=== PATIENT | female | born 1980 | race Caucasian/White ===

== ENCOUNTER 2017-02-24 13:22 | Emergency (ER) | payer SELFPAY ==
[~2017-02-24] VITALS: Ht 162.6 cm; Wt 79.5 kg
[2017-02-24 13:29] VITALS: BP 139/91; PULSE 96; RESP 18; O2SAT 98
[2017-02-24 14:00] LABS: APPEARANCE,URINE HAZY (CLEAR,HAZY); COLOR,URINE STRAW (YELLOW); OCCULT BLOOD,URINE NEGATIVE (NEGATIVE); UROBILINOGEN,URINE NORMAL (NORMAL)
[2017-02-24 14:03] LABS: BASOPHILS % (AUTO) 0.4 % (0-3); EOSINOPHILS % (AUTO) 1.6 % (0-5); MONOCYTES % (AUTO) 8.9 % (4-12); Mean Corpuscular Hemoglobin 29.3 pg (27.0-35.0); Mean Corpuscular Volume 91.3 fL (81-100); NEUTROPHILS % (AUTO) 62.2 % (40-74); Platelet Count 325 bil/L (150-400)
--- NOTE | 2017-02-24 15:17 | ED.REPORT ---
HPI-Abd Pain F Under 40 Date of Service Feb 24, 2017 ED Provider: Richie John MD Pt is a healthy 36 y/o female presenting to the ED c/o rectal pain with radiation to the lower abdomen onset 6 days ago. She has been experiencing rectal pain which she describes as not being located at the anus but much deeper. Her rectal pain seems to radiate in a sharp fashion to her lower abdomen. She describes the pain as a stick being shoved up her rectum. Pain is exacerbated by pressure to the buttocks such as sitting or laying.There is no history of any similar symptoms. She denies fever, chills, diarrhea, constipation, dysuria, bloody stool, nausea, vomiting, vaginal pain. The patient had a hysterectomy 10 years ago due to continuous vaginal bleeding after an IUD. There is no family history of colon cancer, IBS, or Crohn's disease. Nursing Notes Stated Complaint: ABDOMINAL PAIN SENT FROM URGENT CARE Chief Complaint: Female Abdominal Pain Nursing Notes Reviewed: Yes Allergies: Coded Allergies: No Known Allergies (Unverified Allergy, Unknown, 02/24/17) General Time Seen by MD: 15:15 Chief Complaint Other (rectal pain) Hx Obtained From: Patient Arrived By: Walk-in Sudden in Onset?: No Onset Occurred: 6 days ago Symptom Duration: Since onset Progression since Onset: Constant Quality: Painful Radiation: : Abdomen lower Severity: Current: Moderate Severity: Maximum: Moderate Recent Healthcare: No recent doctor visit, No recent hospitalization Similar Sx Previous: No Past Medical History Past Medical History Denies Past Surgical History Hysterectomy - 2006 at [facility] in [place] Smoking History Never Smoker Social History Alcohol Use: Denies alcohol use Drug Use: Denies drug use Ambulatory Status Independent Review of Systems Constitutional: Denies: Chills, Fever Respiratory: Denies: Non-productive cough, Shortness of breath Cardiovascular: Denies: Chest pain, Dyspnea on exertion, Edema GI: Reports: Abdominal pain, Rectal pain, Denies: Anorexia, Bloody/tarry stool, Constipation, Diarrhea, Hematochezia, Melena, Mucousy stool, Nausea, Vomiting Complete sys rev & neg: except as marked. Physical Exam Initial Vital Signs Vital Signs (First) Date Time Temp Pulse Resp B/P Pulse Ox O2 Delivery O2 Flow Rate FiO2 02/24/17 13:29 37 96 18 139/91 98 Room Air Initial VS: Reviewed, Vital signs normal Head / Eyes: Atraumatic, Normocephalic, PERRL ENT: Mucous membranes moist, Conjunctiva normal, No scleral icterus Neck: Supple, Full range of motion Extremities: Vascular intact, Neuro intact, No swelling, No tenderness Skin: Warm, Dry, No cyanosis Neurologic: Alert, Oriented, Nonfocal Psychiatric: Mood/affect normal, Behavior normal, Normal thought content General/Constitutional: Awake, Alert, No acute distress, Cooperative, Not toxic appearing Appearance / Presentation: Positive: Uncomfortable Respiratory / Chest: Atraumatic, Breath sounds NL, Breath sounds = bilat, No respiratory distress, No rales, No rhonchi, No wheezing, No retractions, No stridor, No chest tenderness, No chest wall deformity, No crepitus Cardiovascular: Heart rate NL, Regular rhythm, Heart sounds NL, No gallop, No murmurs, No rubs, Cap refill not delayed, Peripheral circulation NL Abdomen: Atraumatic, Soft, Non-tender, No guarding, No rebound, No distention, No palpable mass Back: Full range of motion, Painless range of motion, No CVA tenderness Female Genitourinary: Extension Work Instructor present (RN Peg), Atraumatic, External genitalia NL, No bleeding, No discharge, No adnexal mass Vaginal tenderness anteriorly Unable to palpate adnexa Rectum / Perineum: Atraumatic, Blood - occult heme -, No gross blood, No discharge, No fecal impaction, No fissures, No hemorrhoids, No mass Formed brown stool Rectovaginal exam normal with no palpable mass Interpretation & Diagnostics Lab Results Interpretation Result Diagram: 02/24/17 1350 02/24/17 1350 Test 02/24/17 13:36 02/24/17 13:50 Urine Color Straw (YELLOW) Urine Appearance Hazy (CLEAR,HAZY) Urine pH 7.0 (5.0-8.0) Urine Specific [place] 1.010 (1.003-1.035) Urine Protein Negativemg/dL (NEG,TRACE) Urine Glucose (UA) Negativemg/dL (NEGATIVE) Urine Ketones Negativemg/dL (NEGATIVE) Urine Occult Blood Negative (NEGATIVE) Urine Nitrite Negative (NEGATIVE) Urine Bilirubin Negative (NEGATIVE) Urine Urobilinogen Normalmg/dL (NORMAL) Urine Leukocyte Esterase Negative (NEGATIVE) Urine RBC 0-2/hpf (0-2) Urine WBC 0-5/hpf (0-5) Urine Epithelial Cells Occasional/hpf (NONE-MOD) Urine Crystals None seen (NONE SEEN) Urine Bacteria Moderate/hpf (NONE-FEW) Urine Hyaline Casts None/lpf (NONE) Urine Granular Casts None seen (NONE SEEN) Urine Waxy Casts None seen (NONE SEEN) Urine Red Blood Cell Casts None seen (NONE SEEN) Urine White Blood Cell Casts None seen (NONE SEEN) Urine Mucus None seen (None Seen) Urine Trichomonas None seen (NONE SEEN) Urine Yeast None (NONE SEEN) Urinalysis Comment None Urine Culture Reflexed Indicated White Blood Count 8.0th/mm3 (3.8-10.1) Red Blood Count 4.61mil/mm3 (3.90-5.20) Hemoglobin 13.5g/dL (12.0-15.6) Hematocrit 42.1% (35.0-46.0) Mean Corpuscular Volume 91.3fL (81-100) Mean Corpuscular Hemoglobin 29.3pg (27.0-35.0) Mean Corpuscular Hemoglobin Concent 32.1% (32.0-37.0) Red Cell Distribution Width 13.4% (12.3-15.4) Platelet Count 325bil/L (150-400) Neutrophils (%) (Auto) 62.2% (40-74) Lymphocytes (%) (Auto) 26.7% (14-46) Monocytes (%) (Auto) 8.9% (4-12) Eosinophils (%) (Auto) 1.6% (0-5) Basophils (%) (Auto) 0.4% (0-3) Sodium Level 138mEq/L (134-144) Potassium Level 3.8mEq/L (3.5-5.2) Chloride Level 102mEq/L (97-108) Carbon Dioxide Level 20mmol/L (18-29) Blood Urea Nitrogen 6mg/dL (6-20) Creatinine 0.63mg/dL (0.57-1.00) Estimat Glomerular Filtration Rate 155mL/min (>59) Glucose Level 102mg/dL (60-99) Lactic Acid Level 1.2mmol/L (0.4-2.0) Calcium Level 10.0mg/dL (8.5-10.1) Magnesium Level 2.0mg/dL (1.6-2.6) Total Bilirubin 0.3mg/dL (0.0-1.2) Aspartate Amino Transf (AST/SGOT) 19U/L (0-50) Alanine Aminotransferase (ALT/SGPT) 16U/L (0-32) Alkaline Phosphatase 57U/L (25-150) Total Protein 7.7g/dL (6.4-8.4) Albumin 4.5g/dL (3.4-5.0) Lipase 41U/L (13-60) CT Abd / Pelvis Interpretation IMPRESSION: 1. 18 mm follicle/small cyst in the left ovary. 2. 29 mm AP by 20 mm transverse focus of fluid within the inferior pelvis in direct approximation to the rectum and adjacent sigmoid colon. There is a very minimal appearance of stranding within the adjacent perirectal fat. This could represent a small amount of inflammatory fluid such as developing abscess or phlegmon of uncertain etiology. In addition, potentially developing colitis/proctitis cannot be definitively excluded. While there is an appearance of mild thickening within the sigmoid colon extending to the rectum, it is also incompletely distended. Clinical correlation and interval followup is recommended. Dictated by: Nishi Granados M.D. on 02/24/2017 at 17:14 Approved by: Nishi Granados M.D. on 02/24/2017 at 17:22 Study type: Abdominal CT IV contrast, Abdom CT oral contrast Interpretation / Wet Read by: Interpret - Radiologist, Discussed w radiologist US Focused non-OB Pelvis IMPRESSION: Bilateral ovarian cysts. Otherwise, unremarkable exam. Dictated by: Nishi Granados M.D. on 02/24/2017 at 17:50 Approved by: Nishi rGanados M.D. on 02/24/2017 at 17:51 Exam Performed by: Allied health pract Exam Interpreted by: Radiologist Re-Eval/Medical Decision Re-Evaluation/Progress #1: Time of Eval: 17:49 Re-Evaluation/Progress Note: Pt rechecked. Discussed imaging findings. Re-Evaluation/Progress #2: Time of Eval: 18:25 Re-Evaluation/Progress Note: Pt rechecked. Informed pt of plan for treatment. Pt understands and agrees with plan for treatment. F/U instructions and RTER warnings given. All questions addressed. Consultation #1: Referral / Consult Name: Hoang Pulido MD Consulted With: Surgeon Call Returned at: 17:32 Therapeutic Massage Technician: Agrees with eval, Agrees with plan Note: Reviewed CT scan. Believes this fluid is likely colorectal in nature rather than recruit instructor. Will call GI physician and call back. Recommends outpatient GI follow-up. Consultation #2: Referral / Consult Name: Nishi Granados MD Call Returned at: 17:47 Therapeutic Massage Technician: Agrees with eval, Agrees with plan Note: Discussed imaging with radiologist in depth. Counseled Regarding: Diagnosis, Lab results, Need for follow-up, When/why to return to ED Discharge & Departure Primary Impression: Pelvic fluid collection Additional Impression: Rectal pain Disposition: Home Discharge Condition All VS Reviewed: Yes Condition: Stable Patient Instructions: Acute Abdominal Pain (ED) Additional Instructions: The CT scan today showed a pocket of fluid just next to the rectum. It is unclear why the fluid is there or what it represents but it does not seem to be emergent at the moment. I consulted with our surgeon, radiologist, and dynamo repairer. They believe the source of fluid is colorectal rather than gynecological. Outpatient follow-up is the best option at this time. Take 800 mg Ibuprofen every 8 hours for aching pain. Take the prescription pain medication as needed for severe pain. This causes sedation and constipation. Each strong pain pill contains 325 mg of Tylenol so include this in your daily total of 4000 mg. Return to the emergency department if you experience vomiting, high fever, increasing pain, shaking chills, diarrhea, or for other concerning symptoms. Follow-up with gastrointestinal physician Dr. Garcia early next week. Call tomorrow morning to set up an appointment. Referrals: Miguel Garcia MD Attestation Portions of this note were transcribed by Pedro Keane. I, Dr. John, personally performed the history, physical exam and medical decision-making; I reviewed and confirmed the accuracy of the information in the transcribed note. Signed by Adalberto Watson, 02/24/17 - 1600 copies to: Miguel Garcia MD, Kirk H MD Feb 24, 2017 15:17 PEDRO KEANE Feb 24, 2017 15:24
[2017-02-24] MEDS ORDERED: Iohexol 300 mg/mL 30 mL Inj PO ONE (15:35)
--- NOTE | 2017-02-24 17:23 | DRSVH ---
PROCEDURE: CT ABDOMEN AND PELVIS WITH CONTRAST ([id number]) INDICATIONS: recto-vaginal pain TECHNIQUE: After the administration of oral and intravenous contrast, 5 mm thick sections acquired from the diap hragms to the symphysis. 5 mm thick coronal and sagittal reformats were performed. For radiation do se reduction, the following was used: automated exposure control, adjustment of mA and/or kV accordi ng to patient size. COMPARISON: [facility] [place] , CT, ABD/PELVIS W/CON ([facility] 12/18/2009, 13:52. FINDINGS: Image quality: Excellent. ABDOMEN: Lung bases: Lung bases are clear. Heart size is normal. Solid organs: Liver and spleen are normal in size and enhancement. Gallbladder is unremarkable . B iliary system is non-dilated. Pancreas enhances normally. No adrenal nodules. Kidneys are normal i n size and enhancement, without hydronephrosis. Peritoneum and bowel: Stomach, small bowel, and colon loops are normal in caliber and wall thickness . No free air. There is a 29 mm AP by 20 mm transverse focus of fluid within the lower pelvis at th e anterior margin of the rectum and adjacent sigmoid colon. There is a minimal appearance of strandin g within the adjacent perirectal fat. Adjacent sigmoid colon demonstrates a questionable appearance o f minimal thickening. However, it is incompletely distended. Nodes and vessels: No retroperitoneal or mesenteric adenopathy. Aorta and inferior vena cava are no rmal in caliber. Miscellaneous: No ventral hernias. PELVIS: Genitourinary: Bladder wall thickness is normal. There is an 18 mm follicle/small cyst in the left ovary. Miscellaneous: No inguinal hernias or adenopathy. Bones: No suspicious bony lesions. No vertebral body compression fractures. IMPRESSION: 1. 18 mm follicle/small cyst in the left ovary. 2. 29 mm AP by 20 mm transverse focus of fluid within the inferior pelvis in direct approximation to the rectum and adjacent sigmoid colon. There is a very minimal appearance of stranding within the adj acent perirectal fat. This could represent a small amount of inflammatory fluid such as developing ab scess or phlegmon of uncertain etiology. In addition, potentially developing colitis/proctitis cannot be definitively excluded. While there is an appearance of mild thickening within the sigmoid colon e xtending to the rectum, it is also incompletely distended. Clinical correlation and interval followup is recommended. Dictated by: Nishi Granados M.D. on 02/24/2017 at 17:14 Approved by: Nishi Granados M.D. on 02/24/2017 at 17:22
--- NOTE | 2017-02-24 17:53 | DRSVH ---
PROCEDURE: US PELVIC SONOGRAM + TRANSVAGINAL SONOGRAM INDICATIONS: recto-pelvic pain TECHNIQUE: Real-time scanning was performed of the pelvic organs, with image documentation. Additional endovagi nal scanning was necessary due to incomplete visualization of the adnexal and endometrial structures by transabdominal scanning. COMPARISON: None. FINDINGS: (orthogonal measurements) Uterus size: Absent Right ovary size: 2.36 cm, 2.08 cm, 2.87 cm Left ovary size: 2.44 cm, 2.21 cm, 3.90 cm Transabdominal scanning: Limited scanning through the kidneys shows no hydronephrosis. No pathologi c free abdominal or pelvic fluid. Endovaginal scanning: Uterus: Uterus is normal in size and appearance. Endometrium is within normal physiologic limits. Ovaries: There is a complex heteroechogenicity within the right ovary measuring 13 x 15 x 14 mm. Foca l area of hypoechogenicity is present within the left ovary measured 21 x 21 x 16 mm. IMPRESSION: Bilateral ovarian cysts. Otherwise, unremarkable exam. Dictated by: Nishi Granados M.D. on 02/24/2017 at 17:50 Approved by: Nishi Grnaados M.D. on 02/24/2017 at 17:51
[2017-02-24] MEDS ORDERED: ONDA4TAB9 PO (18:30)
[2017-02-24] MEDS ORDERED: HYDR-4003 PO (18:30)
[2017-02-24 18:43] VITALS: BP 132/93; PULSE 94; RESP 16; O2SAT 99
== END 2017-02-24 18:44 | disposition home or self-care (01) ==
LOC: SED 13:22
DX: R19.09 Other intra-abdominal and pelvic swelling, mass and lump (principal); K62.89 Other specified diseases of anus and rectum; Z90.710 Acquired absence of both cervix and uterus
CPT/HCPCS: 36415; 74177; 76830; 76856; 80053; 81000; 83605; 83690; 83735; 85025; 87040; 87086; 87088; 99285; J1885; Q9967

== ENCOUNTER 2017-02-26 21:01 | Observation (INO) | payer SELFPAY ==
[~2017-02-26] VITALS: Ht 162.6 cm; Wt 84.8 kg
[~2017-02-26 21:01] MED LIST: HYDR-4003 PO; ONDA4TAB9 PO
[2017-02-26 21:05] VITALS: BP 133/84; PULSE 105; RESP 18; O2SAT 99
--- NOTE | 2017-02-26 21:18 | ED.REPORT ---
HPI-Abd Pain F Under 40 Date of Service Feb 26, 2017 ED Provider: Cesar Mcrae MD The pt is a healthy 36 y/o female presenting to the ED c/o LLQ abdominal pain onset 1900 today. She reports the pain initially was localized to her right flank but now is experiencing a very sharp pain in her LLQ. The pain began very abruptly and was constant but now she reports the pain waxing and waning. She bought stool softener yesterday and experienced diarrhea. She is experiencing nausea but denies pain with bowel movements, fever, dysuria, or vomiting. She was recently in the ED two days ago c/o rectal pain which had been ongoing for 6 days. The patient had a hysterectomy 10 years ago due to continuous vaginal bleeding after an IUD. She had a small sip of water very recently and took pain medication with food at 1200. CT and ultrasound were performed during that visit and were interpreted as below. CT Abd / Pelvis Interpretation IMPRESSION: 1. 18 mm follicle/small cyst in the left ovary. 2. 29 mm AP by 20 mm transverse focus of fluid within the inferior pelvis in direct approximation to the rectum and adjacent sigmoid colon. There is a very minimal appearance of stranding within the adjacent perirectal fat. This could represent a small amount of inflammatory fluid such as developing abscess or phlegmon of uncertain etiology. In addition, potentially developing colitis/proctitis cannot be definitively excluded. While there is an appearance of mild thickening within the sigmoid colon extending to the rectum, it is also incompletely distended. Clinical correlation and interval followup is recommended. Dictated by: Nishi Granados M.D. on 02/24/2017 at 17:14 Approved by: Nishi Granados M.D. on 02/24/2017 at 17:22 Study type: Abdominal CT IV contrast, Abdom CT oral contrast Interpretation / Wet Read by: Interpret - Radiologist, Discussed w radiologist US Focused non-OB Pelvis IMPRESSION: Bilateral ovarian cysts. Otherwise, unremarkable exam. Dictated by: Nishi Granados M.D. on 02/24/2017 at 17:50 Approved by: Nishi Granados M.D. on 02/24/2017 at 17:51 Exam Performed by: Allied health pract Exam Interpreted by: Radiologist Nursing Notes Stated Complaint: ABDOMINAL PAIN Chief Complaint: Female Abdominal Pain Nursing Notes Reviewed: Yes Allergies: Coded Allergies: No Known Allergies (Verified Allergy, Unknown, 02/26/17) Scheduled PRN Hydrocodone-Acetaminophen 5-325 mg (Hydrocodone-Acetaminophen 5-325 mg) 1 Each Tablet 1-2 TABLET PO Q4H PRN PRN For Pain Ondansetron ODT (Zofran ODT) 4 Mg Tablet 4 MG PO Q4H PRN PRN For Nausea General Time Seen by MD: 21:15 Chief Complaint Abdominal pain Hx Obtained From: Patient Arrived By: Walk-in Sudden in Onset?: Yes Onset Occurred: 1 - 4 hours ago Symptom Duration: Waxes and wanes Progression since Onset: Waxes and wanes Location: : LLQ Quality: Stabbing Severity: Current: Severe Severity: Maximum: Severe Recent Healthcare: Recent doctor visit, Recent testing Similar Sx Previous: No Past Medical History Past Medical History Denies Past Surgical History Hysterectomy - 2007 at [facility] in [place] Smoking History Never Smoker Social History Alcohol Use: Denies alcohol use Drug Use: Denies drug use Ambulatory Status Independent Review of Systems Review of Systems Note: Denies pain w/ bm Constitutional: Denies: Fever GI: Reports: Abdominal pain (LLQ), Diarrhea, Nausea, Denies: Vomiting Complete sys rev & neg: except as marked. Physical Exam Initial Vital Signs Vital Signs (First) Date Time Temp Pulse Resp B/P Pulse Ox O2 Delivery O2 Flow Rate FiO2 02/26/17 21:05 36.7 105 18 133/84 99 Room Air Initial VS: Reviewed, Vital signs abnormal Head / Eyes: Atraumatic, Normocephalic, PERRL ENT: Mucous membranes moist, Conjunctiva normal, No scleral icterus Neck: Supple, Full range of motion Extremities: Vascular intact, Neuro intact, No swelling, No tenderness Skin: Warm, Dry, No cyanosis Neurologic: Alert, Oriented, Nonfocal Psychiatric: Mood/affect normal, Behavior normal, Normal thought content General/Constitutional: Awake, Alert, Well developed, Well nourished, Cooperative, Not toxic appearing Appearance / Presentation: Positive: Uncomfortable Respiratory / Chest: Atraumatic, Breath sounds NL, Breath sounds = bilat, No respiratory distress, No rales, No rhonchi, No wheezing Cardiovascular: Heart rate NL, Regular rhythm, Heart sounds NL, No gallop, No murmurs, No rubs, Peripheral circulation NL Abdomen: Atraumatic, Soft, No distention Tenderness/Guarding/Rebound: Positive: Guarding involuntary, Tender LLQ... (w/ guarding ), Tender suprapubic (w/ guarding ) Back: Full range of motion, Painless range of motion Interpretation & Diagnostics Lab Results Interpretation Result Diagram: 02/26/17214902/26/172149 Test 02/26/17 21:50 White Blood Count 8.6th/mm3 (3.8-10.1) Red Blood Count 4.35mil/mm3 (3.90-5.20) Hemoglobin 12.8g/dL (12.0-15.6) Hematocrit 40.1% (35.0-46.0) Mean Corpuscular Volume 92.2fL (81-100) Mean Corpuscular Hemoglobin 29.4pg (27.0-35.0) Mean Corpuscular Hemoglobin Concent 31.9% (32.0-37.0) Red Cell Distribution Width 13.4% (12.3-15.4) Platelet Count 332bil/L (150-400) Neutrophils (%) (Auto) 57.2% (40-74) Lymphocytes (%) (Auto) 30.7% (14-46) Monocytes (%) (Auto) 8.8% (4-12) Eosinophils (%) (Auto) 2.7% (0-5) Basophils (%) (Auto) 0.5% (0-3) Sodium Level 138mEq/L (134-144) Potassium Level 4.2mEq/L (3.5-5.2) Chloride Level 103mEq/L (97-108) Carbon Dioxide Level 22mmol/L (18-29) Blood Urea Nitrogen 8mg/dL (6-20) Creatinine 0.62mg/dL (0.57-1.00) Estimat Glomerular Filtration Rate 158mL/min (>59) Glucose Level 107mg/dL (60-99) Calcium Level 10.0mg/dL (8.5-10.1) Magnesium Level 2.0mg/dL (1.6-2.6) Total Bilirubin 0.2mg/dL (0.0-1.2) Aspartate Amino Transf (AST/SGOT) 25U/L (0-50) Alanine Aminotransferase (ALT/SGPT) 16U/L (0-32) Alkaline Phosphatase 49U/L (25-150) Total Protein 7.2g/dL (6.4-8.4) Albumin 4.1g/dL (3.4-5.0) Lipase 18U/L (13-60) Hold Paredes Top Tube Received (Received) US Focused non-OB Pelvis US tech reports left ovarian torsion Exam Performed by: Allied health pract Exam Interpreted by: Allied health pract Re-Eval/Medical Decision Re-Evaluation/Progress : Time of Eval: 23:49 Re-Evaluation/Progress Note: Informed pt of imaging which indicates left ovarian torsion and need for child care education coordinator consult. Consultation : Referral / Consult Name: Saurabh Damon MD Call Returned at: 23:51 Jump Roll Operator: Agrees with eval, Agrees with plan Note: Discussed case with OBGYN. Recommends CT. Will consult tonight. Counseled Regarding: Diagnosis, Lab results Discharge & Departure Primary Impression: Ovarian torsion Discharge Condition All VS Reviewed: Yes Condition: Stable Referrals: NOPCP (PCP) Care Transferred to: Dr. Arellano at midnight. child care education coordinator consult and CT pelvis pending Care Transferred at: 00:00 Scribe Attestation Portions of this note were transcribed by Pedro Keane and Erick Kumar. I, Dr. Mcrae, personally performed the history, physical exam and medical decision- making; I reviewed and confirmed the accuracy of the information in the transcribed note. Signed by Pedro Keane and Erick Kumar, Scribe, 02/26/17 - 2199 Cesar Mcrae MD Feb 26, 2017 21:18 Erick Kumar Feb 26, 2017 21:26 PEDRO KEANE Feb 26, 2017 21:52
[2017-02-26] MEDS ORDERED: 0.9% Sodium Chloride 1,000 ML IV ONE (21:24)
[2017-02-26] MEDS ORDERED: Ondansetron 2 mg/mL 2 mL Inj IVPUSH PRN (21:25)
[2017-02-26] MEDS: HYDROmorphone 0.5 mg/0.5 mL iSecure Syringe IVPUSH PRN ×3 (21:52→23:48)
[2017-02-26 21:58] LABS: BASOPHILS % (AUTO) 0.5 % (0-3); EOSINOPHILS % (AUTO) 2.7 % (0-5); MONOCYTES % (AUTO) 8.8 % (4-12); Mean Corpuscular Hemoglobin 29.4 pg (27.0-35.0); Mean Corpuscular Volume 92.2 fL (81-100); NEUTROPHILS % (AUTO) 57.2 % (40-74); Platelet Count 332 bil/L (150-400)
[2017-02-27] VITALS (11 sets, daily range): BP systolic 98–120; BP diastolic 57–92; PULSE 59–101; RESP 13–21; O2SAT 95–100
--- NOTE | 2017-02-27 01:32 | PCM.CONSUR ---
Subjective Date of Service: Feb 27, 2017 History of Present Illness 36 y/o [id number] female presenting to the ED c/o LLQ abdominal pain that started last night, but intensified by 7pm. Denies pain with bowel movements, fever, dysuria, or vomiting. She recently presented to the ED two days ago c/o rectal pain which had been ongoing for 6 days. She has f/u with outpatient GI next week for a 2 cm fluid collection adjacent to the sigmoid. Imaging then also revealed 1.8 cm left ovarian cyst. However imaging today revealed a larger 3cm L ovarian mildly complex cyst. Arterial waveforms were not visualized. There was some venous and color flow in the L ovary. The radiologist notes that the presence of flow does not exclude torsion but may indicate viability in the appropriate clinical setting. A small amt of fluid is noted in the cul[place]. A repeat CT today also revealed the same fluid collection adjacent to the sigmoid that is unchanged. The patient had a vaginal hysterectomy 10 years ago due to menorrhagia after IUD expulsion. She had a small sip of water very recently and took pain medication with food at 1200. Reason for Consultation pelvic pain, ovarian cyst torsion Allergy Allergies: Coded Allergies: No Known Allergies (Verified Allergy, Unknown, 02/26/17) Medications Hypertension Medication: No Home Meds Incl Beta Blockers: No Hydrocodone-Acetaminophen 5-325 mg (Hydrocodone-Acetaminophen 5-325 mg) 1 Each Tablet 1-2 TABLET PO Q4H PRN PRN For Pain Prescribed by: LONDON LINDQUIST MD Omeprazole Magnesium (Prilosec Otc) 20 Mg Tablet.dr 20 MG PO DAILY (Reported) Last Taken: UNKNOWN on Unknown Date & Time Ondansetron ODT (Zofran ODT) 4 Mg Tablet 4 MG PO Q4H PRN PRN For Nausea Prescribed by: LONDON LINDQUIST MD Past Surgical History Surgeries: Yes (vaginal hysterectomy) Other Pertinent Data: Fhx of cervical, ovarian and pancreatic cancer Social History Hx Alcohol Use: No Hx Substance Use: No Hx Tobacco Use: Yes (she quit 2 years ago) PMH Cardiovascular History Cardiovascular History: Denies:: Congestive Heart Failure Hypertension Respiratory Respiratory History: Denies:: Tuberculosis Gastrointestinal History HX of GI Problems?: Yes Gastrointestinal History: Positive for:: Cirrhosis Diverticulitis Gall Bladder Disease Gastroesphageal Reflux (takes Prilosec) Gastrointestinal Bleeding Heartburn Hepatitis Hiatal Hernia Liver Disease Rectal Bleeding Other History Hx Any Other Health Problems?: No Diabetes: No Social History Hx Alcohol Use: NoHx Substance Use: No Smoking Status: Never Smoker Family History PMH Family Diagnosis: Cancer Objective Exam Vital Signs & I/O Vital Sign- Last 8 Hours Date Time Temp Pulse Resp B/P Pulse Ox O2 Delivery O2 Flow Rate FiO2 02/26/17 21:05 36.7 105 18 133/84 99 Room Air Lab & Micro Results Laboratory Tests Test 02/26/17 21:50 White Blood Count 8.6th/mm3 (3.8-10.1) Red Blood Count 4.35mil/mm3 (3.90-5.20) Hemoglobin 12.8g/dL (12.0-15.6) Hematocrit 40.1% (35.0-46.0) Mean Corpuscular Volume 92.2fL (81-100) Mean Corpuscular Hemoglobin 29.4pg (27.0-35.0) Mean Corpuscular Hemoglobin Concent 31.9% (32.0-37.0) Red Cell Distribution Width 13.4% (12.3-15.4) Platelet Count 332bil/L (150-400) Neutrophils (%) (Auto) 57.2% (40-74) Lymphocytes (%) (Auto) 30.7% (14-46) Monocytes (%) (Auto) 8.8% (4-12) Eosinophils (%) (Auto) 2.7% (0-5) Basophils (%) (Auto) 0.5% (0-3) Sodium Level 138mEq/L (134-144) Potassium Level 4.2mEq/L (3.5-5.2) Chloride Level 103mEq/L (97-108) Carbon Dioxide Level 22mmol/L (18-29) Blood Urea Nitrogen 8mg/dL (6-20) Creatinine 0.62mg/dL (0.57-1.00) Estimat Glomerular Filtration Rate 158mL/min (>59) Glucose Level 107mg/dL (60-99) Calcium Level 10.0mg/dL (8.5-10.1) Magnesium Level 2.0mg/dL (1.6-2.6) Total Bilirubin 0.2mg/dL (0.0-1.2) Aspartate Amino Transf (AST/SGOT) 25U/L (0-50) Alanine Aminotransferase (ALT/SGPT) 16U/L (0-32) Alkaline Phosphatase 49U/L (25-150) Total Protein 7.2g/dL (6.4-8.4) Albumin 4.1g/dL (3.4-5.0) Lipase 18U/L (13-60) Hold Paredes Top Tube Received (Received) Result Diagram: 02/26/17214902/26/172149 Review of Systems: Constitutional: Negative, except as otherwise mentioned in the history above. Ophthalmologic: Negative, except as otherwise mentioned in the history above. Cardiovascular: Negative, except as otherwise mentioned in the history above. Respiratory: Negative, except as otherwise mentioned in the history above. Gastrointestinal: Negative, except as otherwise mentioned in the history above. Genitourinary: Negative, except as otherwise mentioned in the history above. Musculoskeletal: Negative, except as otherwise mentioned in the history above. Neurological: Negative, except as otherwise mentioned in the history above. Psychiatric: Negative, except as otherwise mentioned in the history above. Hematologic/Lymphatic: Negative, except as otherwise mentioned in the history above. Allergic/Immunologic: Negative, except as otherwise mentioned in the history above. H&P Surgical Exam Exam General: Alert, Oriented X3, Cooperative HEENT: Within normal limits & unremarkable Neck: Within normal limits & unremarkable Respiratory: Clear to Auscultation Cardiac: Exam Unremarkable Abdomen: Other (LLQ and L pelvic tenderness to palpation despite having had IV dilaudid) Assessment & Plan Assessment suspected L ovarian cyst torsion The differential diagnosis also includes ruptured ovarian cyst and hemorrhagic cyst Plan: Decision to go to OR. She was consented for a Laparoscopic L salpingoophorectomy, possible minilaparotomy. She preferred this rather than salvaging the L adnexa with possible small risk of re-torsion in the future. She has had a hysterectomy and therefore is not childbearing. Risks discussed: hemorrhage, blood transfusion, injury to bowel/bladder/ureters , need for laparotomy, pelvic abscess, cellulitis, incisional hernia, anesthetic risks. She agreed and signed the consent form. Time Spent: 60 min, 10 min reviewing records, >50% counseling [id number] copies: Saurabh Damon MD, William Andre Z MD Feb 27, 2017 01:31
[2017-02-27] MEDS ORDERED: CeFAZolin Inj 2 GM in IV Premix 1 EACH IV ONE (01:40)
[2017-02-27 01:47] LABS: APPEARANCE,URINE HAZY (CLEAR,HAZY); COLOR,URINE STRAW (YELLOW); OCCULT BLOOD,URINE NEGATIVE (NEGATIVE); UROBILINOGEN,URINE NORMAL (NORMAL)
[2017-02-27] MEDS ORDERED: Lactated Ringer's 1,000 ML IV ONE (02:23)
[2017-02-27] MEDS ORDERED: Lactated Ringer's 1,000 ML IV SCH ×2 (02:24→04:09)
[2017-02-27] MEDS ORDERED: Lactated Ringer's 500 ML IV PRN (02:24)
--- NOTE | 2017-02-27 02:24 | PCM.HPANE ---
Patient Data Date of Service: Feb 27, 2017 Surgeon Admitting Provider:Saurabh Damon MD Attending Provider:Saurabh Damon MD Primary Care Physician:Nopcp Other Provider: Reason for Visit Ovarian Torsion Ht/WT & BMI Height (Feet): 5 Height (Inches): 4 Weight (Kilograms): 81.82 Body Mass Index Allergies Coded Allergies: No Known Allergies (Verified Allergy, Unknown, 02/26/17) Past Anesthesia History Anesthesia History: Denies:: Anesthesia Reactions, Fam Anesthesia Reaction, Malignant Hyperthermia Diabetes History Hx Diabetes?: No Medications Hypertension Medication: No Home Meds Incl Beta Sanjiv: No Active Scripts Ondansetron ODT (Zofran ODT)4 Mg Tablet4 Mg PO Q4H PRN For Nausea #15 TABLET Prov:Richie John MD 02/24/17 Hydrocodone-Acetaminophen 5-325 mg 1 Each Tablet1-2 Tablet PO Q4H PRN For Pain # 20 TABLET Prov:Richie John MD 02/24/17 History History of ENT Problems?: No Hx of Heart Problems?: No Cardiovascular History: Denies:: Congestive Heart Failure Hypertension Hx of Respiratory Problem?: No Respiratory History: Denies:: Tuberculosis Hx Neurologic Problems?: No Hx of GI Problems?: Yes Gastrointestinal History: Positive for:: Gastroesphageal Reflux (takes Prilosec) Heartburn Denies:: Liver Disease Hx of Problems?: No Female Hx: Denies:: Currently Hx Musculoskeletal Problems?: No Hx of Psycho/Social Problems?: No Hx Surgeries?: Yes (vaginal hysterectomy) Hx Any Other Health Problems?: No Hx Diabetes: No Hx Alcohol Use: NoHx Substance Use: No Smoking Status: Never Smoker Have You Smoked inLast 12 mo: No Stop/Bang CRISTOPHER Risk Assessment: Low Risk, <3 Yes Risk Assessment Category Category 1A: Patient has history of documented sleep apnea, and HAS NOT received any narcotic, sedative or anesthesia administration during this stay. Category 1B: Patient has history of documented sleep apnea, and HAS received any narcotic , sedative or anesthesia administration during this stay Category 2: Patient has SUSPECTED Obstructive Sleep Apnea, and HAS received any narcotic , sedative or anesthesia administration during this stay. Category 3: Patient has SUSPECTED Obstructive Sleep Apnea and HAS NOT received narcotic, sedative or anesthesia administration during this stay. Category 4: Outpatient in Procedural Areas with known sleep apnea or who screen positive for High Risk via the STOP/BANG questionnaire. Exam Exam Vital Signs Vital Signs Date Time Temp Pulse Resp B/P Pulse Ox O2 Delivery O2 Flow Rate FiO2 02/26/17 21:05 36.7 105 18 133/84 99 Room Air General Appearance: Alert, Oriented X3, Cooperative, No Acute Distress HEENT/AIRWAY: MP 2 Lungs: Clear to Auscultation, Normal Air Movement Heart: Exam Unremarkable, Regular Rate/Rhythm, No Murmurs/Rubs/Gallops Meds/Labs/Diagnostics Admission Meds Current Medications Sodium Chloride (Normal Saline) 1,000 ml @ 0 mls/hr Q0M ONCE IV Last administered on 02/26/17t 21:52; Start 02/26/17 at 21:24; Stop 02/26/17 at 21:27 ; Status DC Labs Test 02/26/17 01:30 02/26/17 21:50 Urine Color Straw (YELLOW) Urine Appearance Hazy (CLEAR,HAZY) Urine pH 7.0 (5.0-8.0) Urine Specific [place] 1.010 (1.003-1.035) Urine Protein Negativemg/dL (NEG,TRACE) Urine Glucose (UA) Negativemg/dL (NEGATIVE) Urine Ketones Negativemg/dL (NEGATIVE) Urine Occult Blood Negative (NEGATIVE) Urine Nitrite Negative (NEGATIVE) Urine Bilirubin Negative (NEGATIVE) Urine Urobilinogen Normalmg/dL (NORMAL) Urine Leukocyte Esterase Negative (NEGATIVE) Urine RBC 0-2/hpf (0-2) Urine WBC 0-5/hpf (0-5) Urine Epithelial Cells Moderate/hpf (NONE-MOD) Urine Crystals None seen (NONE SEEN) Urine Bacteria Moderate/hpf (NONE-FEW) Urine Hyaline Casts None/lpf (NONE) Urine Granular Casts None seen (NONE SEEN) Urine Waxy Casts None seen (NONE SEEN) Urine Red Blood Cell Casts None seen (NONE SEEN) Urine White Blood Cell Casts None seen (NONE SEEN) Urine Mucus None seen (None Seen) Urine Trichomonas None seen (NONE SEEN) Urine Yeast None (NONE SEEN) Urinalysis Comment None Urine Culture Reflexed Indicated White Blood Count 8.6th/mm3 (3.8-10.1) Red Blood Count 4.35mil/mm3 (3.90-5.20) Hemoglobin 12.8g/dL (12.0-15.6) Hematocrit 40.1% (35.0-46.0) Mean Corpuscular Volume 92.2fL (81-100) Mean Corpuscular Hemoglobin 29.4pg (27.0-35.0) Mean Corpuscular Hemoglobin Concent 31.9% (32.0-37.0) Red Cell Distribution Width 13.4% (12.3-15.4) Platelet Count 332bil/L (150-400) Neutrophils (%) (Auto) 57.2% (40-74) Lymphocytes (%) (Auto) 30.7% (14-46) Monocytes (%) (Auto) 8.8% (4-12) Eosinophils (%) (Auto) 2.7% (0-5) Basophils (%) (Auto) 0.5% (0-3) Sodium Level 138mEq/L (134-144) Potassium Level 4.2mEq/L (3.5-5.2) Chloride Level 103mEq/L (97-108) Carbon Dioxide Level 22mmol/L (18-29) Blood Urea Nitrogen 8mg/dL (6-20) Creatinine 0.62mg/dL (0.57-1.00) Estimat Glomerular Filtration Rate 158mL/min (>59) Glucose Level 107mg/dL (60-99) Calcium Level 10.0mg/dL (8.5-10.1) Magnesium Level 2.0mg/dL (1.6-2.6) Total Bilirubin 0.2mg/dL (0.0-1.2) Aspartate Amino Transf (AST/SGOT) 25U/L (0-50) Alanine Aminotransferase (ALT/SGPT) 16U/L (0-32) Alkaline Phosphatase 49U/L (25-150) Total Protein 7.2g/dL (6.4-8.4) Albumin 4.1g/dL (3.4-5.0) Lipase 18U/L (13-60) Hold Paredes Top Tube Received (Received) Plan Impression Patient chart reviewed, patient interviewed and anesthestic plan with risks, benefits, and alternatives discussed, and informed consent obtained. NPO Status: 1200 ASA Physical Status: ASA2 Plus Emergency Anesthetic Plan: GA Bene/Risks/Altern/Consents: Yes HP Complete Prior to Induction: Yes Palmer Guo MD Feb 27, 2017 01:53
[2017-02-27] MEDS ORDERED: EPHEDrine Sulfate 50 mg/mL Inj IVPUSH PRN (02:25)
[2017-02-27] MEDS ORDERED: Phenylephrine 10,000 mCg/mL Inj IVPUSH PRN (02:25)
[2017-02-27] MEDS ORDERED: Labetalol 5 mg/mL 4 mL Inj IV PRN (02:25)
[2017-02-27] MEDS ORDERED: HYDROmorphone 1 mg/mL Inj IVPUSH PRN (02:25)
[2017-02-27] MEDS ORDERED: hydrALAZINE 20 mg/mL Inj IVPUSH PRN (02:25)
[2017-02-27] MEDS ORDERED: MetoCLOpramide 5 mg/mL 2 mL Inj IVPUSH PRN ×2 (02:25→04:10)
[2017-02-27] MEDS ORDERED: Ondansetron 2 mg/mL 2 mL Inj IVPUSH PRN ×2 (02:25→04:10)
[2017-02-27] MEDS ORDERED: Atropine 0.4 mg/mL Inj IVPUSH PRN (02:25)
[2017-02-27] MEDS ORDERED: Bupivacaine 0.5%/EPI 50 mL Inj INFILTRATE ONE (02:58)
[2017-02-27] MEDS ORDERED: Acetaminophen IV 1,000 MG in IV Premix 1 EACH IV ONE (04:10)
[2017-02-27] MEDS ORDERED: Alum-Mag Hydrox-Simeth 30 mL Suspension PO PRN (04:10)
--- NOTE | 2017-02-27 04:14 | PCM.ANEP2 ---
Post Anesthesia Evaluation ASA/CMS Post Anesthesia VS in Patient's Normal Range?: Yes Resp Stable; Airway Patent?: Yes CV Function & Hydration Stable: Yes Mental Status Recovered?: Yes Pain control Satisfactory?: Yes N/V Control Satisfactory?: Yes Palmer Guo MD Feb 27, 2017 04:14
--- NOTE | 2017-02-27 04:14 | PCM.ANEP1 ---
Post Anesthesia Phase 1 PACU Phase 1 Assessment Date of Service: Feb 27, 2017 Vital Signs 36.2 139/62 98 23 99% FM Anesthetic Administered: GA Level of Alertness: Sleepy, easy to arouse PETTY's with Equal Strength: Yes Pain: Yes Pain Scale Score: 4 Nausea or Vomiting: No Oxygen Delivery: Simple Mask Lungs: Clear to Auscultation, Normal Air Movement Palmer Guo MD Feb 27, 2017 04:14
[2017-02-27] MEDS ORDERED: diphenhydrAMINE 25 mg Capsule PO PRN (04:15)
[2017-02-27] MEDS: fentaNYL-PF 50 mCg/mL 2 mL Inj IVPUSH PRN ×2 (04:28→04:40)
[2017-02-27] MEDS ORDERED: OMEP20TA24 PO (05:01)
[2017-02-27] MEDS: oxyCODONE-Acetamin 5-325 mg Tablet PO PRN ×3 (05:14→12:54)
--- NOTE | 2017-02-27 06:11 | NUR ---
Post-op Admit Pt. arrived on floor at 0455. Pt. alert and oriented x3. Pt.'s peripheral IV intact and patent. On 2 liters of oxygen via nc. O2 stats 99%. Pt. reported pain /10. Percocet PO given. Pt. tolerating Percocet and water well with no nausea observed. Will continue to monitor.
--- NOTE | 2017-02-27 06:57 | DRSVH ---
PROCEDURE: US PELVIC SONOGRAM WITH TRANSVAG AND DOPPLER, LIMITED INDICATIONS: L pelvic pain ? torsion TECHNIQUE: Real-time scanning was performed of the pelvic organs, with image documentation. Additional endovagi nal scanning was necessary due to incomplete visualization of the adnexal and endometrial structures by transabdominal scanning. COMPARISON: None. FINDINGS: Transabdominal scanning: Limited scanning through the kidneys shows no hydronephrosis. No pathologi c free abdominal or pelvic fluid. Endovaginal scanning: Uterus: The uterus is surgically absent. Ovaries: The right ovary measures 3.2 x 2.1 x 2.2 cm and has a normal echotexture. The left ovary ann sures 3.7 x 3.3 x 3.8 cm. A complex 3.2 x 2.9 x 2.9 cm cyst is present within the left ovary with int ernal septations. Venous flow is visualized within the left ovary. No definite arterial flow detected . IMPRESSION: 1. Complex left ovarian cyst with internal septations. Differential considerations include involuting hemorrhagic cyst and endometrioma. 6-12 week followup is recommended to ensure resolution of this fi nding. 2. Venous flow detected within the left ovary, but no definite arterial flow. The significance of thi s finding is unclear; however early ovarian torsion could be considered in the appropriate differenti al. Short interval sonographic followup and close clinical surveillance is recommended to exclude ova deborah torsion. These findings are concordant with the overnight interpretation. Dictated by: Caron Seals M.D. on 02/27/2017 at 6:41 Approved by: Caron Seals M.D. on 02/27/2017 at 6:55
--- NOTE | 2017-02-27 07:05 | DRSVH ---
PROCEDURE: CT PELVIS WITH CONTRAST ([id number]) INDICATIONS: pelvic pain TECHNIQUE: After the administration of oral contrast and intravenous contrast, 5 mm thick sections acquired from the iliac crests to the symphysis. 5 mm thick coronal and sagittal reformats were acquired. For ra diation dose reduction, the following was used: automated exposure control, adjustment of mA and/or kV according to patient size. COMPARISON: [facility] [place] , CT, ABD/PELVIS W/CON (PNL), 03/28/2009, 13:00. [facility], US, US PELVIC+TRANSVAG, 02/24/2017, 17:32. FINDINGS: Image quality: Excellent. Peritoneum and bowel: Contrast enhanced bowel loops demonstrate normal wall thickness and caliber. No free fluid or air. Genitourinary: Bladder wall thickness is normal. The uterus is surgically absent. Multiple follicul ar cysts are present within the right ovary. There is a low density 3.4 x 3.6 cm left ovarian cystic lesion. There is expected soft tissue opacification of both ovaries. Nodes and vessels: No iliac, pelvic, or inguinal adenopathy. Iliac vessels demonstrate normal size and enhancement. Bones: No suspicious bony lesions. An 8 mm diameter centrally lucent, peripherally sclerotic focus i s present within the left iliac bone. This measured 7 mm in diameter on the study dated 03/28/09. Miscellaneous: No inguinal hernias. IMPRESSION: 1. Left ovarian cystic lesion. There is expected soft tissue opacification of the bilateral ovaries s uggesting adequate ovarian blood flow. 2. Benign-appearing left iliac bone lesion. Dictated by: Caron Seals M.D. on 02/27/2017 at 6:56 Approved by: Caron Seals M.D. on 02/27/2017 at 7:03
[2017-02-27] MEDS ORDERED: Acetaminophen IV 1,000 MG in IV Premix 1 EACH IV SCH (08:00)
[2017-02-27] MEDS ORDERED: Senna-Docusate 8.6-50 mg Tablet PO SCH (08:30)
[2017-02-27 09:34] LABS: BASOPHILS % (AUTO) 0.1 % (0-3); EOSINOPHILS % (AUTO) 0 % (0-5); MONOCYTES % (AUTO) 3.4 % (4-12); Mean Corpuscular Volume 93.4 fL (81-100); Platelet Count 321 bil/L (150-400)
--- NOTE | 2017-02-27 13:02 | PCM.PNSURG ---
Subjective Date of Service: Feb 27, 2017 Date of Service: Feb 27, 2017 Visit Information: Reason for Visit Ovarian Torsion Surgery/Surgery Date Post-Op Day # 0 Date of Admission: Feb 27, 2017 at 01:40 Hospital Day # 1 Subjective: AVSS Pt ambulatory OR explained - no torsion; ruptured ovarian cyst and ovarian adhesions noted tolerating diet Pain control with po percocet, ibuprofen hct stable Postop General: No Complaints Gastrointestinal: Tolerating Oral Feedings Pain Management: PO Postop Activity: Ambulating Independently Objective Vital Sign- Last 8 Hours Date Time Temp Pulse Resp B/P Pulse Ox O2 Delivery O2 Flow Rate FiO2 02/27/17 09:00 36.6 74 16 105/71 97 Room Air 02/27/17 09:00 Supplement Oxygen 02/27/17 07:41 80 20 95 Room Air 02/27/17 05:30 Supplement Oxygen 02/27/17 05:10 Supplement Oxygen 02/27/17 05:09 36.5 71 18 98/63 100 Nasal Cannula 2.00 Intake and Output- Last 8 Hour 02/27/17 Cumulative From/Thru 07:00 02/26/17 21:05 - 02/27/17 06:15 Intake Total 1050 ml 1050 ml Output Total 250 ml 250 ml Balance 800 ml 800 ml Intake Oral 0 ml 0 ml IV Total 1050 ml 1050 ml Output Urine Total 250 ml 250 ml General: Alert, Oriented X3, Cooperative Lungs: Clear to Auscultation Abdomen: Appropriately tender Catheters: None Result Diagram: 02/27/17 0925 02/26/17 2150 Assessment & Plan Impression 1. ruptured L ovarian cyst 2. No ovarian torsion 3. ovarian and pelvic adhesions 4. 2 cm fluid collection adjacent to sigmoid found on imaging may be related to above process 5. stable for discharge Problems: Plan d/c home today suggest reschedule colonoscopy for 4-6 wk to recover from surgery first; she currently denies any defecatory pain f/u in clinic in 2 wk copies to: Saurabh Damon MD; Cesar Mcrae MD, William Andre Z MD Feb 27, 2017 13:02
--- NOTE | 2017-02-27 13:06 | PCM.DIGYN ---
Surgical Discharge Instruction Dates of Hospitalization Date of Hospital Admission Feb 27, 2017 at 01:40 Providers Admitting Physician: Saurabh Damon MD Primary Care Physician: Nopcp Attending Physician: Saurabh Damon MD Diagnosis at Time of Discharge Diagnosis at time of discharge 1. ruptured left ovarian cyst; no evidence of torsion 2. ovarian and pelvic adhesions 3. 2 cm fluid collection seen on CT adjacent to the rectosigmoid may be related to blood/clot from ruptured cyst Post-operative diagnosis same Problems: Diet Discharge Diet: No restrictions Activity Discharge Activity-General: No lifting >15 pounds for 2 weeks Dressing and Incisional Care Dressing Care: Allow Steri Stripes to fall off Hygiene: May shower Follow Up Plan Follow-up appointment: Weeks (2; call Dr. Damon's office [phone] to make appointment) Call your provider for: Fever, Chills, Shortness of breath, Vomitting, Drainage at incision, Wound redness, Increasing pain Saurabh Damon MD Feb 27, 2017 13:05
--- NOTE | 2017-02-27 13:30 | NUR ---
Discharge Pt left via wheelchair and one attendant via POV to home. All hand written Rx's given. All questions answered. F/U understood
[2017-02-27] MEDS ORDERED: Propofol 10,000 mCg/mL 20 mL Inj ONE (13:35)
[2017-02-27] MEDS ORDERED: Ondansetron 2 mg/mL 2 mL Inj ONE (13:35)
[2017-02-27] MEDS ORDERED: Glycopyrrolate 0.2 MG/ML 1mL Inj ONE (13:35)
[2017-02-27] MEDS ORDERED: fentaNYL-PF 50 mCg/mL 2 mL Inj ONE (13:35)
[2017-02-27] MEDS ORDERED: Neostigmine 1 mg/mL 10 mL Inj ONE (13:35)
[2017-02-27] MEDS ORDERED: Rocuronium 10 mg/mL 5 mL Inj ONE (13:35)
[2017-02-27] MEDS ORDERED: Phenylephrine/NS 100 mCg/mL 10 mL Syringe IVPUSH ONE (13:35)
[2017-02-27] MEDS ORDERED: Dexamethasone 4 mg/mL Inj ONE (13:35)
--- NOTE | 2017-03-01 13:28 | PATH ---
SURGICAL PATHOLOGY Attending Physician:Saurabh Damon, CASE STATUS: Signed Out PATIENT NAME: JUDD MEDINA PID: [id number] : 1980 DATE COLLECTED:02/27/2017 16:55 SPECIMEN: Ovary, Cyst, Non-Neoplastic CLINICAL HISTORY: LEFT OVARIAN CYST/TORSION/ADHESIONS A. LEFT OVARIAN CYST WALL FINAL DIAGNOSIS: 1.LEFT OVARIAN CYST WALL: MULTIPLE TISSUE FRAGMENTS CONSISTENT WITH PORTIONS OF HEMORRHAGIC CYSTIC CORPUS LUTEUM. ICD10 CODE N83.10 GROSS DESCRIPTION: The specimen is received in formalin, labeled with the patient's name, sublabeled as left ovarian cyst wall and consists of a piece of red-brown membranous tissue (2.7 x 0.6 x 0.2 cm). Section code: (A) tissue, serially sectioned. Specimen is entirely submitted. 02/27/17 JM MICRO DESCRIPTION: See diagnosis. ICD-9 CODES: CPT CODES: 1: 37498 Electronically Signed Out Cesar Hansen MD [facility] [address], [place] [address] Technical component performed at [facility], [facility] [address], [place], [address]
--- NOTE | 2017-03-11 18:53 | PCM.SURGOP ---
Surgical Operative Report Date of Service: Feb 26, 2017 Pre Operative Diagnosis Pelvic pain Suspected ovarian cyst torsion Post Operative Diagnosis Ruptured ovarian cyst Pelvic adhesions Procedure: Laparoscopic adhesiolysis and ovarian cystectomy Surgeon and Director Digital Marketing: Surgeon: Saurabh Damon MD Assistants: None Indication for Procedure 36 y/o [id number] female presenting to the ED c/o LLQ abdominal pain that started last night, but intensified by 7pm. Denies pain with bowel movements, fever, dysuria, or vomiting. She recently presented to the ED two days ago c/o rectal pain which had been ongoing for 6 days. She has f/u with outpatient GI next week for a 2 cm fluid collection adjacent to the sigmoid. Imaging then also revealed 1.8 cm left ovarian cyst. However imaging today revealed a larger 3cm L ovarian mildly complex cyst. Arterial waveforms were not visualized. There was some venous and color flow in the L ovary. The radiologist notes that the presence of flow does not exclude torsion but may indicate viability in the appropriate clinical setting. A small amt of fluid is noted in the culdesac. A repeat CT today also revealed the same fluid collection adjacent to the sigmoid that is unchanged. The patient had a vaginal hysterectomy 10 years ago due to menorrhagia after IUD expulsion. The assessment was suspected L ovarian cyst torsion. The differential diagnosis also includes ruptured ovarian cyst and hemorrhagic cyst. Plan: She was consented for a Laparoscopic L salpingoophorectomy, possible minilaparotomy. She preferred this rather than salvaging the L adnexa with possible small risk of re-torsion in the future. She has had a hysterectomy and therefore is not childbearing. Risks discussed: hemorrhage, blood transfusion, injury to bowel/bladder/ureters , need for laparotomy, pelvic abscess, cellulitis, incisional hernia, anesthetic risks. She agreed and signed the consent form. Findings: Adhesions involving L pelvic sidewall, L ovary and cul-de-sac Ruptured L ovarian cyst (no evidence of torsion) with collection of clots adjacent to sigmoid and ruptured cyst Procedure Details SURGICAL TECHNIQUE: The patient was brought to the operating room and was placed under general anesthesia. She was prepped and draped in the normal fashion for vaginal surgery with legs in Naveen stirrups. She was given a dose of intravenous antibiotics intraoperatively. An indwelling 16F mejia catheter was placed. A cquqwh-zw-p-stick was inserted into the vagina. Lidocaine 1% with 1:100,000 of epinephrine was along the periumbilical, suprapubic and right/left lower quadrant areas. Using the open laparoscopy technique, a vertical infraumbilical incision was made along the skin. Using S-retractors, blunt dissection was used to dissect through the subcutaneous fat to reach the fascia. The fascia was tented up with 2 Kochers and incised with a scalpel. 0 Vicryl sutures (x2) were passed through the angles of the 10 mm fascial incision. The rectus muscle was gently sweeped laterally and the peritoneum was tented with 2 hemostats. A scalpel was used to incise the peritoneum to enter the abdominal cavity. A gloved finger was inserted into the incision. It was noted that there were no adhesions under the anthony-umbilical area. We then inserted the Turner trocar into the incision. The abdomen was insufflated with approximately 3.5 liters of gas. She was placed in Trendelenberg position. Next a 5 mm port was inserted into a suprapubic incision under direct vision via a 5 mm trocar. A second and third 5-mm ports were inserted under direct vision in the LLQ and RLQ of the abdomen, avoiding the abdominal wall vessels via transillumination. The pelvic cavity was examined. Mild to moderate adhesions were noted in the left pelvic sidewall and cul-de-sac involving omentum to the peritoneum and ovary, and also from the sigmoid omentum to the cul-de-sac. In addition, a ruptured ovarian cyst (2-3 cm in size) was noted associated with a collection of clot (50-100 ml in volume) adjacent to the sigmoid. The uterus and right adnexa appeared normal. In the upper abdomen, the liver was normal in appearance. There was no evidence of Tvwt-Ajgp-Uyiimq perihepatic adhesions. The pelvic adhesions were taken down with a combination of blunt dissection and with the Thunderbeat system. On inspection of the bowel afterward, it was noted to be intact, without injury. We proceeded with L ovarian cystectomy. The ruptured cyst was grasped then excised with laparoscopic scissors. The specimen was sent to pathology. Good hemostasis was noted. The abdomen and pelvis were then irrigated with sterile fluid. Clots were evacuated. Hemostasis was noted to be adequate. All instruments were then removed under direct vision as the abdomen was de-insufflating. The fascia along the infraumbilical incision was closed using 0 Vicryl suture in a running fashion. The skin was reapproximated using 4-0 absorbable suture in a subcuticular fashion. The lower skin incisions, suprapubically and along the lower quadrants, were reapproximated using 4-0 absorbable suture, Steri-Strips, and Band-Aids. The estimated blood loss was 50 ml. There were no complications. All sponges and instruments were accounted for. Complications There were no periprocedural complications identified. Surgical Specimen Removed: Yes Specimen sent to Pathology: Yes Surgical Specimen description: ovarian cyst Anesthetic Plan: GA Grafts, Implants: None Output, Estimated Blood Loss: 50 (ml (with additional 50-100 ml of blood clots at onset of case)) Blood Administration during conley: No Drains: None Catheters: None Post Operative Plan discharge home later today copies to: Saurabh Damon MD, William Andre Z MD Mar 11, 2017 18:53
--- NOTE | 2017-03-11 19:40 | PCM.DC.SUR ---
Discharge Summary Date of Service: Feb 27, 2017 Date of Hospital Admission: Feb 27, 2017 at 01:40 Date of Operation(s): 02/27/17 Date of Discharge: 02/27/17 Diagnosis at Time of Discharge Ruptured L ovarian cyst and pelvic adhesions Problems: Operation Laparoscopic left ovarian cystectomy and pelvic adhesiolysis Brief History and Physical: 36 y/o [id number] female presenting to the ED c/o LLQ abdominal pain that started last night, but intensified by 7pm. Denies pain with bowel movements, fever, dysuria, or vomiting. She recently presented to the ED two days ago c/o rectal pain which had been ongoing for 6 days. She has f/u with outpatient GI next week for a 2 cm fluid collection adjacent to the sigmoid. Imaging then also revealed 1.8 cm left ovarian cyst. However imaging today revealed a larger 3cm L ovarian mildly complex cyst. Arterial waveforms were not visualized. There was some venous and color flow in the L ovary. The radiologist notes that the presence of flow does not exclude torsion but may indicate viability in the appropriate clinical setting. A small amt of fluid is noted in the culdesac. A repeat CT today also revealed the same fluid collection adjacent to the sigmoid that is unchanged. The patient had a vaginal hysterectomy 10 years ago due to menorrhagia after IUD expulsion. Assessment suspected L ovarian cyst torsion The differential diagnosis also includes ruptured ovarian cyst and hemorrhagic cyst Plan: Decision to go to OR. She was consented for a Laparoscopic L salpingoophorectomy, possible minilaparotomy. She preferred this rather than salvaging the L adnexa with possible small risk of re-torsion in the future. She has had a hysterectomy and therefore is not childbearing. Risks discussed: hemorrhage, blood transfusion, injury to bowel/bladder/ureters , need for laparotomy, pelvic abscess, cellulitis, incisional hernia, anesthetic risks. She agreed and signed the consent form. Hospital Course: Surgery/Surgery Date Post-Op Day # 0 Date of Admission: Feb 27, 2017 at 01:40 Hospital Day # 1 Subjective: AVSS Pt ambulatory OR explained - no torsion; ruptured ovarian cyst and ovarian adhesions noted tolerating diet Pain control with po percocet, ibuprofen hct stable Postop General: No Complaints Gastrointestinal: Tolerating Oral Feedings Pain Management: PO Postop Activity: Ambulating Independently Objective Vital Sign- Last 8 Hours Date Time Temp Pulse Resp B/P Pulse Ox O2 Delivery O2 Flow Rate FiO2 02/27/17 09:00 36.6 74 16 105/71 97 Room Air 02/27/17 09:00 Supplement Oxygen 02/27/17 07:41 80 20 95 Room Air 02/27/17 05:30 Supplement Oxygen 02/27/17 05:10 Supplement Oxygen 02/27/17 05:09 36.5 71 18 98/63 100 Nasal Cannula 2.00 Intake and Output- Last 8 Hour 02/27/17 Cumulative From/Thru 07:00 02/26/17 21:05 - 02/27/17 06:15 Intake Total 1050 ml 1050 ml Output Total 250 ml 250 ml Balance 800 ml 800 ml Intake Oral 0 ml 0 ml IV Total 1050 ml 1050 ml Output Urine Total 250 ml 250 ml General: Alert, Oriented X3, Cooperative Lungs: Clear to Auscultation Abdomen: Appropriately tender Catheters: None Result Diagram: 02/27/17 0925 02/26/17 2150 [Image 1] Assessment & Plan Impression 1. ruptured L ovarian cyst 2. No ovarian torsion 3. ovarian and pelvic adhesions 4. 2 cm fluid collection adjacent to sigmoid found on imaging may be related to above process 5. stable for discharge Problems: Plan d/c home today suggest reschedule colonoscopy for 4-6 wk to recover from surgery first; she currently denies any defecatory pain f/u in clinic in 2 wk Pathology: pending Disposition: stable for discharge Follow-up Plan: postop visit in 2 wk Omeprazole Magnesium (Prilosec Otc) 20 Mg Tablet.dr 20 MG PO DAILY (Reported) Ondansetron ODT (Zofran ODT) 4 Mg Tablet 4 MG PO Q4H PRN PRN For Nausea copies to: Saurabh Damon MD, William Andre Z MD Mar 11, 2017 19:40
== END 2017-02-27 13:36 | disposition home or self-care (01) ==
LOC: SED 21:01 → OSC 02-27 01:40
PROVIDERS: ADMIT Obstetrics & Gynecology; ATTEND Obstetrics & Gynecology
PROC: 0UB14ZZ Excision of Left Ovary, Percutaneous Endoscopic Approach (ICD-10-PCS; principal; 2017-02-27 02:15)
DX: N83.512 Torsion of left ovary and ovarian pedicle (principal); N83.292 Other ovarian cyst, left side; N73.6 Female pelvic peritoneal adhesions (postinfective); Z90.710 Acquired absence of both cervix and uterus
CPT/HCPCS: 36415; 58662; 72193; 76830; 76856; 80053; 81000; 81025; 83690; 83735; 85025; 86850; 87086; 87088; 93976; 94640; 94664; 96361; 96374; 96375; 96376; 99285; G0378; J0131; J0690; J1100; J1170; J1885; J2175; J2250; J2370; J2405; J2710; J3010; J7030; J7120; Q9967

== ENCOUNTER 2017-06-16 05:32 | Day surgery (SDC) | payer SELFPAY ==
[2017-06-16] VITALS (9 sets, daily range): BP systolic 106–137; BP diastolic 61–84; PULSE 64–87; RESP 15–20; O2SAT 94–99
[~2017-06-16] VITALS: Ht 162.6 cm; Wt 85.5 kg
[~2017-06-16 05:32] MED LIST changes: -HYDR-4003 PO; +OMEP20TA24 PO; -ONDA4TAB9 PO; +OXYC1TAB24 PO
[2017-06-16] MEDS ORDERED: Rocuronium 10 mg/mL 5 mL Inj ONE (05:33)
[2017-06-16] MEDS ORDERED: Dexamethasone 4 mg/mL Inj ONE (05:33)
[2017-06-16] MEDS ORDERED: fentaNYL-PF 50 mCg/mL 2 mL Inj ONE (05:33)
[2017-06-16] MEDS ORDERED: Ondansetron 2 mg/mL 2 mL Inj ONE (05:33)
[2017-06-16] MEDS ORDERED: MetoCLOpramide 5 mg/mL 2 mL Inj ONE (05:33)
[2017-06-16] MEDS ORDERED: Neostigmine 1 mg/mL 10 mL Inj ONE (05:33)
[2017-06-16] MEDS ORDERED: Glycopyrrolate 0.2 MG/ML 1mL Inj ONE (05:33)
[2017-06-16] MEDS ORDERED: CeFAZolin 2 Gm/50 mL D5W IV Premix IV PRN (06:00)
[2017-06-16] MEDS: Lactated Ringer's 1,000 ML IV SCH ×2 (06:53→07:29)
[2017-06-16] MEDS ORDERED: Bupivacaine 0.5%/EPI 50 mL Inj INFILTRATE ONE (08:30)
[2017-06-16] MEDS ORDERED: Lactated Ringer's 500 ML IV PRN (08:37)
[2017-06-16] MEDS ORDERED: Lactated Ringer's 1,000 ML IV SCH (08:37)
--- NOTE | 2017-06-16 08:37 | PCM.HPANE ---
Patient Data Date of Service: Jun 16, 2017 (0715) Surgeon Admitting Provider: Attending Provider:Saurabh Damon MD Primary Care Physician:Nopvern Other Provider:Blaze Yee Anesthesia Reason for Visit Pelvic Pain, Left Ovarian Cyst Ht/WT & BMI Height (Feet): 5 Height (Inches): 4 Weight (Kilograms): 85.5 Body Mass Index 32.00 Allergies Coded Allergies: No Known Allergies (Verified Allergy, Unknown, 02/26/17) Past Anesthesia History Anesthesia History: Denies:: Abnormal Airway, Anesthesia Reactions, Difficult Intubation, Fam Anesthesia Reaction, Malignant Hyperthermia Diabetes History Hx Diabetes?: No MRSA MRSA: No Medications Hypertension Medication: No Home Meds Incl Beta Sanjiv: No Reported Medications oxyCODONE-Acetaminophen 5-325 mg 1 Each Tablet1 Tab PO Q4H PRN For Pain Ref 0 06/11/17 Omeprazole Magnesium (Prilosec Otc)20 Mg Tablet.dr20 Mg PO DAILY #1 PKG Ref 0 02/27/17 Discontinued Scripts Ondansetron ODT (Zofran ODT)4 Mg Tablet4 Mg PO Q4H PRN For Nausea #15 TABLET Prov:Richie John MD 02/24/17 History History of ENT Problems?: No HEENT History: Denies:: Abnormal Airway Cataracts Difficult Intubation Dysphagia Glaucoma Hearing Problem Sinus Problem TMJ Denture Type: None Teeth Condition: Within Normal Limits Missing Teeth Hx of Heart Problems?: No Cardiovascular History: Denies:: AICD Abdominal Aortic Aneurism Cardiac Surgery Congestive Heart Failure Heart Murmur Hypertension Irregular Heartbeat Pacemaker Peripheral Vascular Rheumatic Fever Thrombophlebitis Hx of Respiratory Problem?: No Respiratory History: Denies:: Asthma COPD Emphysema Oxygen Administration Pneumonia Tuberculosis Use of C-PAP Machine Use of Inhalers / NEBS Hx Neurologic Problems?: No Neurological History: Denies:: CVA Dementia Dizziness Headaches Multiple Sclerosis Parkinson's Disease Seizures Hx of GI Problems?: Yes Hx of Problems?: Yes Genitourinary History: Positive for:: Kidney Stones (passed spontaneously 6 years ago) Denies:: Urinary Tract Infection Female Hx: Denies:: Currently Endometriosis Pelvic Inflammatory Problems with Breasts? Skin History: Denies:: History Skin Disorders? Pressure Ulcers Hx Musculoskeletal Problems?: No Musculoskeletal History: Denies:: Degenerative Joint Fibromyalgia Joint Replacement Musculoskeletal Trauma Myasthenia Gravis Osteoarthritis Rheumatoid Arthritis Systemic Lupus Hx of Psycho/Social Problems?: No Psycho Social History: Denies:: Hx Depression (remote hx of, situational ) Hx Surgeries?: Yes (Vaginal Hysterectomy, left ovarian cystectomy) Hx Any Other Health Problems?: Yes Other History: Denies:: Cancer Thyroid Disease History Blood Transfusions: Positive for:: Accept Blood Products? Denies:: Blood Transfusions (O negative) Hx Diabetes: No Other Pertinent History: hx of left ovarian torsion 02/2017 with left ovarian cyst removed. Left tube/ovary still remain Hx Alcohol Use: YesAlcoholic Drinks Per Day: holidays onlyHx Substance Use: No (trialed marijuana x 1 , did not find effective ) Smoking Status: Never Smoker Have You Smoked inLast 12 mo: No Stop/Bang S-Snoring: Do You Snore Loudly: No T-Tired: feel tired, fatigued: No O-Obsered: Observed not breath: No P-Blood Pressure: treated: No B- Body Mass Index > 35 kg/m2: No A- Age over 50: No N- Neck Large Circumference: No G- Gender Male: No CRISTOPHER Total Score: 0 Risk Assessment Category Category 1A: Patient has history of documented sleep apnea, and HAS NOT received any narcotic, sedative or anesthesia administration during this stay. Category 1B: Patient has history of documented sleep apnea, and HAS received any narcotic , sedative or anesthesia administration during this stay Category 2: Patient has SUSPECTED Obstructive Sleep Apnea, and HAS received any narcotic , sedative or anesthesia administration during this stay. Category 3: Patient has SUSPECTED Obstructive Sleep Apnea and HAS NOT received narcotic, sedative or anesthesia administration during this stay. Category 4: Outpatient in Procedural Areas with known sleep apnea or who screen positive for High Risk via the STOP/BANG questionnaire. Exam Exam Vital Signs Vital Signs Date Time Temp Pulse Resp B/P Pulse Ox O2 Delivery O2 Flow Rate FiO2 06/16/17 06:52 36.8 65 16 114/67 98 Room Air General Appearance: Alert, Oriented X3, Cooperative, No Acute Distress HEENT/AIRWAY: MP 2 Lungs: Clear to Auscultation Heart: Exam Unremarkable Meds/Labs/Diagnostics Admission Meds Current Medications Lactated Ringer's (Lr) 1,000 ml @ 120 mls/hr Q8H20M IV Last administered on t 06:53; Start 06/16/17 at 05:00; Stop 06/16/17 at 13:19 Scopolamine (Transderm-Scop Patch) 1.5 mg STK-MED ONCE TOPICAL Last administered on 06/16/17t 07:24; Start 06/16/17 at 07:14; Stop 06/16/17 at 07:15; Status DC Plan Impression Patient chart reviewed, patient interviewed and anesthestic plan with risks, benefits, and alternatives discussed, and informed consent obtained. NPO per Anesth. Guidelines: Yes ASA Physical Status: ASA2 Mod Systemic Disease Anesthetic Plan: GA Bene/Risks/Altern/Consents: Yes HP Complete Prior to Induction: Yes Quinton Cristina MD Jun 16, 2017 08:36
[2017-06-16] MEDS ORDERED: Dexamethasone 4 mg/mL Inj IVPUSH PRN (08:40)
[2017-06-16] MEDS ORDERED: MetoCLOpramide 5 mg/mL 2 mL Inj IVPUSH PRN ×2 (08:40→09:40)
[2017-06-16] MEDS ORDERED: Ondansetron 2 mg/mL 2 mL Inj IVPUSH PRN ×2 (08:40→09:40)
[2017-06-16] MEDS ORDERED: Phenylephrine 10,000 mCg/mL Inj IVPUSH PRN (08:40)
[2017-06-16] MEDS ORDERED: HYDROmorphone 1 mg/mL Inj IVPUSH PRN (08:40)
[2017-06-16] MEDS ORDERED: EPHEDrine Sulfate 50 mg/mL Inj IVPUSH PRN (08:40)
[2017-06-16] MEDS ORDERED: oxyCODONE-Acetamin 5-325 mg Tablet PO PRN (09:40)
[2017-06-16] MEDS ORDERED: diphenhydrAMINE 25 mg Capsule PO PRN (09:40)
[2017-06-16] MEDS: fentaNYL-PF 50 mCg/mL 2 mL Inj IVPUSH PRN ×2 (09:42→10:07)
--- NOTE | 2017-06-16 09:45 | PCM.DIGYN ---
Surgical Discharge Instruction Dates of Hospitalization Date of Hospital Admission 06/16/17 as outpatient Providers Admitting Physician: Primary Care Physician: Nopcp Attending Physician: Saurabh Damon MD Diagnosis at Time of Discharge Diagnosis at time of discharge L pelvic pain, L ovarian cyst, L pelvic adhesions Post-operative diagnosis same Problems: Diet Discharge Diet: No restrictions Activity Discharge Activity-General: No lifting >15 pounds for 2 weeks Dressing and Incisional Care Dressing Care: Allow Steri Stripes to fall off Hygiene: May shower Follow Up Plan Follow-up appointment: Weeks (2) Call your provider for: Fever, Chills, Shortness of breath, Vomitting, Drainage at incision, Wound redness, Increasing pain Saurabh Damon MD Jun 16, 2017 09:45
--- NOTE | 2017-06-16 10:24 | PCM.SURGOP ---
Surgical Operative Report Date of Service: Jun 16, 2017 Pre Operative Diagnosis L pelvic pain, L ovarian cyst Post Operative Diagnosis same, Left pelvic and culdesac adhesions Procedure: Laparoscopic adhesiolysis and Left salpingoophorectomy Surgeon and Metal Grader: Surgeon: Saurabh Damon MD Assistants: Yulisa Gaming Indication for Procedure She has persistent and recurrent L pelvic pain for several months that is bothersome and affecting her quality of life. On 02/27/17, Neha underwent a Laparoscopic adhesiolysis and ovarian cystectomy. She was noted to have a ruptured L ovarian cyst. Final pathology results were benign (hemorrhagic corpus luteum). She is hysterectomized. She had a repeat pelvic ultrasound at [facility] on 05/10/17 which revealed a L ovarian cyst, 2.6 cm, likely hemorrhagic. Small multiple R ovarian follicular cysts were noted. No mention of anthony-sigmoid fluid was noted. She would like to proceed with laparoscopic left salpingoophorectomy rather than expectant management since she has been dealing with this issue since January. She is hysterectomized. Surgery is planned for Jun 16 at 730 am at [facility]. FInancing and payment options were discussed as she is self-pay. She agreed with the risks, benefits, and alternatives to surgery. The risks included but not limited to recurrence or persistence of prolapse, recurrence of persistence of incontinence, development of voiding dysfunction, development of urinary urgency, urgency incontinence, frequency, and need for intermittent self-catheterization or prolonged indwelling catheterization, injury to other organs including bladder, bowel, nerves or blood vessels. Need for blood transfusion, need for temporary colostomy or urinary stenting. Need for laparotomy. Development of vaginal scarring, dyspareunia, defecatory dysfunction, recurring pain, hematoma formation, urinary tract infection, cellulitis, necrotizing fascitis, and medical risks including myocardial infarction, stroke or VTE. The patient understood the risks and benefits and consented to surgery. Findings: Moderate adhesions were noted in the left pelvic sidewall involving the omentum and L ovary. Mild adhesions were noted in the cul-de-sac involving omentum to the peritoneum. In addition, an ovarian cyst (2-3 cm in size) was noted at the L ovary. Procedure Details SURGICAL TECHNIQUE: The patient was brought to the operating room and was placed under general anesthesia. She was prepped and draped in the normal fashion for vaginal surgery with legs in Naveen stirrups. She was given a dose of intravenous ancef 2g intraoperatively. An indwelling 16F mejia catheter was placed. Marcaine with 1:200,000 of epinephrine was along the periumbilical, suprapubic and right/left lower quadrant areas. Using the open laparoscopy technique, a horizontal infraumbilical incision was made along the skin. Using S-retractors, blunt dissection was used to dissect through the subcutaneous fat to reach the fascia. The fascia was tented up with 2 Kochers and incised with a scalpel. 0 Vicryl sutures (x2) were passed through the angles of the 10 mm fascial incision. The rectus muscle was gently sweeped laterally and the peritoneum was tented with 2 hemostats. A scalpel was used to incise the peritoneum to enter the abdominal cavity. A gloved finger was inserted into the incision. It was noted that there were no adhesions under the anthony-umbilical area. We then inserted the Turner trocar into the incision. The abdomen was insufflated with approximately 3.5 liters of gas. She was placed in Trendelenberg position. Next a 5 mm port was inserted into a suprapubic incision under direct vision via a 5 mm trocar. A second and third 5-mm ports were inserted under direct vision in the LLQ and RLQ of the abdomen, avoiding the abdominal wall vessels via transillumination. The pelvic cavity was examined. Moderate adhesions were noted in the left pelvic sidewall involving the omentum and L ovary. Mild adhesions were noted in the cul-de-sac involving omentum to the peritoneum. In addition, an ovarian cyst (2-3 cm in size) was noted at the L ovary. The uterus and right adnexa appeared normal. A small simple cyst was noted in the R ovary. In the upper abdomen, the liver was normal in appearance. There was no evidence of Ilir-Dwight -Mckinley perihepatic adhesions. The adhesions were taken down with a combination of blunt dissection and with the Thunderbeat system. On inspection of the bowel afterward, it was noted to be intact, without injury. We proceeded with L ovarian cystectomy. The L adnexa was grasped, the infundibulopelvic ligament vascular pedicle coagulated then excised with Thunderbeat. The specimen was collected via the infraumbilical port. The specimen was sent to pathology. Good hemostasis was noted. The abdomen and pelvis were then irrigated with sterile fluid. Mild oozing was noted from the adnexal pedicle which was controlled with the Thunderbeat system. Hemostasis was noted to be adequate. All instruments were then removed under direct vision as the abdomen was de-insufflating. The fascia along the infraumbilical incision was closed using 0 Vicryl suture in a running fashion. The skin was reapproximated using 4-0 absorbable suture in a subcuticular fashion. The lower skin incisions, suprapubically and along the lower quadrants, were reapproximated using 4-0 absorbable suture, Steri-Strips, and Band-Aids. Cystoscopy was performed after instilling the bladder with 200 ml of D10 solution. She had 2 ureteric orifices on the left side and 2 on the right ( totaling 4). D10 solution allowed us to successfully visualize brisk spillage of urine at all of the ureteric orifices. There was no bladder injury. The bladder otherwise appeared normal. The estimated blood loss was 50 ml. There were no complications. All sponges and instruments were accounted for. She was taken to the recovery room in stable condition. Complications There were no periprocedural complications identified. Surgical Specimen Removed: Yes Specimen sent to Pathology: Yes Surgical Specimen description: left tube and ovary Anesthetic Plan: GA Grafts, Implants: None Output, Estimated Blood Loss: 50 (ml EBL) Blood Administration during conley: No Drains: None Catheters: None Post Operative Plan discharge home later today once stable copies to: Saurabh Damon MD; Yulisa Gaming William Andre Z MD Jun 16, 2017 10:24
[2017-06-16] MEDS ORDERED: Lactated Ringer's 1,000 ML IV ONE (10:31)
--- NOTE | 2017-06-18 15:41 | PATH ---
SURGICAL PATHOLOGY Attending Physician:Saurabh Damon, CASE STATUS: Signed Out PATIENT NAME: JUDD MEDINA PID: [id number] : 1980 DATE COLLECTED:06/16/2017 00:00 SPECIMEN: Ovary +/- tube, non-tumor CLINICAL HISTORY: LEFT OVARIAN CYST, LEFT PELVIC PAIN 1). LEFT TUBE AND OVARY FINAL DIAGNOSIS: 1.LEFT FALLOPIAN TUBE AND OVAR, SALPINGO-OOPHORECTOMY: BENIGN OVARY WITH HEMORRHAGE, CORPUS LUTEUM CYSTS, AND CORPUS ALBICANS. BENIGN FRAGMENTS OF FALLOPIAN TUBE. NO EVIDENCE OF NEOPLASIA. ICD10 N83.10 GROSS DESCRIPTION: The specimen is received in formalin, labeled with the patient's name, sublabeled as left tube & ovary , and consists of an apparent ruptured ovarian cyst (2.5 x 1.2 x 1.2 cm) with an attached fimbriated fallopian tube (length-4.1 cm, diameter-0.8 cm). The cyst has coffey smooth shiny flat serosa with a bright white hard paraovarian nodule (0.4 x 0.2 x 0.2 cm) with a bright white homogenous cut surface. The lining is lockwood-amaya smooth and flat with no excrescences identified. The cut surface contains corpus albicans. The fallopian tube has lockwood-amaya smooth shiny serosa and a amaya unremarkable lumen. Section code: (A) ovarian cyst, serially sectioned, dental detail representative; (B) nodule, bisected, entirely submitted; (C) fallopian tube, serially sectioned, dental detail representative; (D) fimbria, bivalve, entirely submitted. 06/17/17 JM MICRO DESCRIPTION: See diagnosis. ICD-9 CODES: CPT CODES: 1: 45164 Electronically Signed Out Fernanda Valle MD [facility] Pathology [facility] [address], [place] [address] Technical component performed at [facility], [address] [place] [address] Ave[address], [place], [address]
== END 2017-06-16 23:59 | disposition home or self-care (01) ==
LOC: SAS 05:32
PROVIDERS: ATTEND Obstetrics & Gynecology
DX: N83.12 Corpus luteum cyst of left ovary (principal); K66.0 Peritoneal adhesions (postprocedural) (postinfection); R10.2 Pelvic and perineal pain; K21.9 Gastro-esophageal reflux disease without esophagitis; Z90.710 Acquired absence of both cervix and uterus; Z87.891 Personal history of nicotine dependence
CPT/HCPCS: 36415; 58661; 86850; J0690; J1100; J1170; J1885; J2175; J2250; J2405; J2710; J2765; J3010; J7120